=== PATIENT | female | born 1935 | race Caucasian/White ===

== ENCOUNTER 2021-03-24 19:43 | Inpatient (IN) | payer OTHER ==
[~2021-03-24] VITALS: Ht 154.9 cm; Wt 55.8 kg
[~2021-03-24 19:43] MED LIST: ACYCLOVIR 200200 MG PO; ALLOPURINOL 30300 M1 PO; ASPIRIN EC81 M1 PO; ATENOLOL 50 MG50 M1 PO; B COMPLEX WITH1 EACH PO; B-12 INJECTION INJECTION; CIPROFLOXACIN500 M1 PO; DETROL LA4 MG PO; ESTRACE1 MG PO; FLONASE 0.05%50 MCG NASAL; GLUCOPHAGE XR500 MG PO; GLUCOPHAGE500 MG PO; LIPITOR40 MG PO; LISINOPRIL40 MG PO; NORTRIPTYLINE H25 M3 PO; NORVASC 5 MG TAB5 MG PO; OMEPRAZOLE 20 M20 M1 PO; PREDNISONE 10 M10 M1; TIROSINT88 MCG PO; VICODIN 5-5001 EACH PO; WELLBUTRIN SR150 MG PO; WELLBUTRIN XL150 M1; [UNRECOGNIZED DRUG - OTHER]
[2021-03-24 19:44] VITALS: BP 161/96
[2021-03-24 20:01] LABS: BE(vivo) -9.5 mmol/L (-2 to +3); HCO3 14.8 mmol/L (22.0-26.0); PCO2 28.9 mmHg (35.0-45.0); PO2 203.3 mmHg (80.0-100.0); pH 7.328 (7.360-7.450); sO2 99.3 % (92.0-98.0)
[2021-03-24 20:08] LABS: ABSOLUTE NEUTROPHILS 13.5 thou/uL (1.4-8.2); BASOPHILS 0.2 % (0.0-2.0); HEMATOCRIT 45.1 % (37.0-47.0); HEMOGLOBIN 14.8 gm/dL (12.0-15.0); LYMPHOCYTES 4.9 % (24.0-44.0); MCHC 32.8 g/dL (28.0-37.0); MCV 94.5 fL (80.0-100.0); MONOCYTES 8.7 % (1.0-8.0); PLATELET COUNT 301 thou/uL (150-400); POLYS 86.2 % (36.0-66.0); RBC 4.77 mil/uL (4.20-5.00); RDW 15.3 % (10.5-14.5); WBC 15.6 thou/uL (4.0-11.0)
[2021-03-24 20:21] LABS: APTT 25.1 Seconds (24.5-32.8); INR 1.1; PROTIME 11.9 Seconds (10.5-12.1)
[2021-03-24 20:22] LABS: URINE BLOOD 2+ (Negative); URINE COLOR YELLOW; URINE GLUCOSE-RANDOM* 3+ (Negative); URINE KETONES TRACE (Negative); URINE NITRITE-REFLEX NEGATIVE (Negative); URINE PROTEIN (DIPSTICK) 2+ (Negative); URINE UROBILINOGEN 0.2 E.U./dl (0.2-1.0)
[2021-03-24 20:23] LABS: ICTOTEST (BILI CONFIRMATORY) Negative (Negative); URINE BILIRUBIN NEGATIVE (Negative); URINE CLARITY HAZY; URINE LEUKOCYTES-REFLEX 1+ (Negative)
[2021-03-24 20:30] LABS: ALBUMIN 2.7 g/dL (3.4-5.0); CALCIUM 8.5 mg/dL (8.5-10.1); CREATININE 3.3 mg/dL (0.6-1.0); POTASSIUM 4.6 mmol/L (3.5-5.1); TOTAL BILIRUBIN 0.4 mg/dL (0.2-1.0); TOTAL PROTEIN 7.1 g/dL (6.4-8.2); TROPONIN-I 0.07 ng/mL (<0.06)
[2021-03-24 20:33] LABS: BACTERIA-REFLEX >30 Many /HPF (None Seen); CASTS None Seen /LPF (None Seen); SQUAMOUS >10 Many /LPF (0-3); URINE RBC 3-10 Few /HPF (NONE SEEN); URINE WBC-REFLEX 6-15 Few /HPF (0-5)
[2021-03-24 20:34] LABS: CRYSTALS None Seen /LPF (None Seen)
[2021-03-25 01:35] LABS: CALCIUM 7.9 mg/dL (8.5-10.1); CREATININE 3.1 mg/dL (0.6-1.0); MAGNESIUM 2.5 mg/dL (1.8-2.4); PHOSPHORUS 2.4 mg/dL (2.5-4.9); TROPONIN-I 0.06 ng/mL (<0.06)
--- NOTE | 2021-03-25 03:51 | NUR ---
PT CARE PLAN CHANGED TO [facility], PT MOVED TO [facility] SO FAMILY CAN COME VIEW PATIENT. WAR ROOM NOTIFIED, Jose POWELL SPOKE WITH PT FAMILY REGARDING PT DECILINE IN CONDITION AND CHANGE OD DIRECTION OF CARE
[2021-03-25 07:30] VITALS: BP 67/46
--- NOTE | 2021-03-25 17:23 | NUR ---
85-year-old female with a history of hypertension, DM, and dementia is presenting to the ED via EMS from [facility] complaining of shortness of breath that is been ongoing. Per EMS, patient originally tested positive for COVID-19 on 03/20/2021. Prior to this, she was on hospice for her dementia. She was taken off hospice so that she may be hospitalized for COVID-19. States she was hospitalized at [facility] for 1 day and was discharged to SNF. Patient also found to be profoundly hyperglycemic. Patient started IV fluids and IV insulin. Patient started on broad-spectrum antibiotics. Conversations with patient's family, [employer] and they do not wish for any invasive measures or any traumatic procedures. Family met with Renal and primary team and patient placed on comfort care with family aware and agreement. CM will follow if needed.
[2021-03-26 01:06] LABS: GLYCOHEMOGLOBIN (HGB A1C) 10.1 % (4.8-5.6)
== END 2021-03-25 09:25 | DRG 871 ==
LOC: ER 19:43 → EROBS 21:02
PROVIDERS: Emergency Medicine; Nurse Practitioner Family; ADMIT Internal Medicine; ATTEND Internal Medicine
DX: A41.9 Sepsis, unspecified organism (principal); E11.10 Type 2 diabetes mellitus with ketoacidosis without coma; U07.1 COVID-19; G93.41 Metabolic encephalopathy; J12.82 Pneumonia due to coronavirus disease 2019; J96.21 Acute and chronic respiratory failure with hypoxia; N17.9 Acute kidney failure, unspecified; E87.0 Hyperosmolality and hypernatremia; N39.0 Urinary tract infection, site not specified; E46 Unspecified protein-calorie malnutrition; Z66 Do not resuscitate; I10 Essential (primary) hypertension; M10.9 Gout, unspecified; E11.65 Type 2 diabetes mellitus with hyperglycemia; G62.9 Polyneuropathy, unspecified; I25.10 Atherosclerotic heart disease of native coronary artery without angina pectoris; F03.90 Unspecified dementia, unspecified severity, without behavioral disturbance, psychotic disturbance, mood disturbance, and anxiety; Z96.1 Presence of intraocular lens; Z51.5 Encounter for palliative care; Z90.711 Acquired absence of uterus with remaining cervical stump; Z90.49 Acquired absence of other specified parts of digestive tract; Z95.5 Presence of coronary angioplasty implant and graft; Z98.42 Cataract extraction status, left eye; Z98.41 Cataract extraction status, right eye; Z79.82 Long term (current) use of aspirin; Z79.899 Other long term (current) drug therapy; Z79.84 Long term (current) use of oral hypoglycemic drugs; Z88.1 Allergy status to other antibiotic agents; Z88.2 Allergy status to sulfonamides; Z68.23 Body mass index [BMI] 23.0-23.9, adult